=== PATIENT | female | born 1945 | race Two or more races ===

== ENCOUNTER 2016-11-24 12:27 | Observation (INO) | payer MEDICARE, OTHER ==
--- NOTE | ~2016-11-24 | EKG ---
PATIENT: MICHELLE COMBS UNIT #: [id number] Ventricular Rate: 67 BPM Atrial Rate: 67 BPM P-R Interval: 174 ms QRS Duration: 84 ms Q-T Interval: 408 ms QTC Calculation(Bezet): 431 ms P Regent: 70 degrees Calculated R Regent: 71 degrees Calculated T Regent: 63 degrees Diagnosis Line: Normal sinus rhythm Diagnosis Line: Poor R wave progression questionable lead position Diagnosis Line: or body habitus Diagnosis Line: Otherwise normal ECG Diagnosis Line: When compared with ECG of 02-NOV-2015 10:58, Diagnosis Line: No significant change was found Diagnosis Line: Confirmed by MARIELA SANTOS MD ([id number]) on 11/24/2016 Diagnosis Line: 9:23:21 PM INTERPRETING MD: DANIELLE HERNANDEZ
--- NOTE | ~2016-11-24 | DS ---
Unit #: [id number] #: [id number] Patient: MICHELLE COMBS [id number] [address] [place], [place] [address] [id number] MR#: [id number] NAME: MICHELLE COMBS ROOM: 316 Age: 70 Sex: F Admission Date: 11/24/2016 : 1945 Discharge Date: 11/25/2016 Attending Physician: Lynda Aleman M.D. Primary Care Physician: Paolo Toth M.D. DISCHARGE SUMMARY PRIMARY CARE PHYSICIAN Dr. Toth. PRINCIPAL DIAGNOSES 1. Left-sided benign paroxysmal positional vertigo. 2. Urinary tract infection with gram-negative rods, pending urine culture. 3. Anxiety. 4. Hyperlipidemia. 5. Chronic thrombocytopenia. 6. Seasonal allergies. CONSULTANTS None. PROCEDURES None. CLINICAL HISTORY AND HOSPITAL COURSE Ms. Combs is a nice 70-year-old female, Bosnian speaking only, who presents to emergency department with dizziness and weakness. Please refer to H and P for further details. The patient clinically appeared to have benign paroxysmal positional vertigo and was admitted for observation. The patient underwent [place]-Hallpike maneuver today in the room and is still having some dizziness, unfortunately with a lot of associated anxiety. She has had this vertigo intermittently for 20 years and generally has not moved her head to the left nor has she slept on the left for 20 years and this has all been discussed with the patient and her children about the need for outpatient therapy. Meclizine on a p.r.n. basis to help dizziness. The patient was also found to have urinary tract infection, but she is afebrile and has no leukocytosis. She has received 2 doses of Rocephin during hospitalization. Will complete course with Levaquin tomorrow and will follow up urine culture as an outpatient. DISCHARGE CONDITION Stable. DISCHARGE STATUS Discharged to home with plans for outpatient vestibular therapy. DISCHARGE MEDICATIONS Unit #: [id number] #: [id number] Patient: MICHELLE COMBS Zyrtec 10 mg daily, Levaquin 500 mg p.o. x1, and meclizine 25 mg p.o. t.i.d. p.r.n. for dizziness. DISCHARGE INSTRUCTIONS The patient was instructed to follow a heart healthy diet. She can increase her activity as tolerated. She is not to move her head beyond midline at least for the next hour or 2 and then begin moving it to left and right. FOLLOWUP The patient will follow up Dr. Toth in 1 week. Time spent on discharge 45 minutes. Dictated by... Lynda Aleman M.D. GABRIELA/demetria TD: 11/26/2016 03:45 JOB #: [id number] DISCHARGE SUMMARY Page 1 of 1 X Lynda Aleman MD X DISCHARGE SUMMARY
--- NOTE | ~2016-11-24 | HP ---
Unit #: [id number] #: [id number] Patient: MICHELLE COMBS 162133 [facility] [address]. [place], [place] [address] [id number] MR#: [id number] NAME: MICHELLE COMBS ROOM: Age: 70 Sex: F Admission Date: 11/24/2016 : 1945 Attending Physician: Kapil Zuniga M.D. Primary Care Physician: Paolo Toth M.D. HISTORY AND PHYSICAL CHIEF COMPLAINT Dizziness. HISTORY OF PRESENT ILLNESS The patient is a 70-year-old female with past medical history of vertigo and hyperlipidemia who presented to the emergency department for evaluation of the above. The patient speaks Bosnian only but prefers that her son and daughter translate. She refused spanish medical interpreter phone. The patient was apparently in her usual state of health until the morning of admission when she awoke with a spinning sensation. She had associated nausea. She felt generally weak, similar to when she has had vertigo in the past. The sensation was exacerbated position changes and moving of the head. She presented to the emergency department for further evaluation. In the emergency department, pulse and blood pressure were 74 and 133/73 respectively. She was given Reglan, Solu-Medrol, and Antivert as well as one liter of normal saline. She became quite anxious after administration of Reglan. She was subsequently a milligram of Ativan. She is currently rather lethargic following Ativan; however, she does awake to physical stimuli. Laboratory is notable for findings concerning for urinary tract infection. She is being admitted to [facility] for evaluation and further treatment. PAST MEDICAL HISTORY 1. Hyperlipidemia. 2. Vertigo. PAST SURGICAL HISTORY Cholecystectomy. SOCIAL HISTORY The patient lives with her . There is no tobacco or alcohol use. She typically walks without assistance. FAMILY HISTORY Notable for her mother dying at the age of 93. Her dad had heart problems. ALLERGIES The patient does have a medication allergy. She was apparently seen in the emergency department, November 02, 2015, for an allergic reaction. The family is not sure what medication this was due to. Unit #: [id number] #: [id number] Patient: MICHELLE COMBS HOME MEDICATIONS None. REVIEW OF SYSTEMS A complete review of systems is negative except as indicated in the HPI. PHYSICAL EXAMINATION GENERAL APPEARANCE: The patient is a female who is lethargic but awakes to physical stimuli. VITAL SIGNS: Temperature 97.7. Pulse 74. Respirations 16. Blood pressure 133/73. Oxygen saturation is 96% on room air. HEENT: The head is atraumatic. Mucous membranes are moist. NECK: Supple. Trachea is midline. CARDIOVASCULAR: Regular rate and rhythm. LUNGS: Clear to auscultation bilaterally with no increased work of breathing. ABDOMEN: Soft, nontender with bowel sounds present in all four quadrants. EXTREMITIES: Nontender with no pedal edema. NEUROLOGIC: The patient is currently rather lethargic. She was alert and oriented, following commands prior to Ativan. PSYCHIATRIC: The patient was previously somewhat anxious following administration of Reglan. SKIN: Of examined areas is warm and dry. DIAGNOSTIC STUDIES LABORATORY: Complete blood count notable for platelets of 126. Troponin is less than 0.05. Comprehensive metabolic panel notable for glucose of 123. Urinalysis notable for trace leukocyte esterase, positive nitrite, 4+ bacteria. CARDIOVASCULAR: EKG shows normal sinus rhythm with a rate of 67 beats per minute. ASSESSMENT The patient is a 70-year-old female with: 1. Generalized weakness. 2. Vertigo. 3. Urinary tract infection. There are no urine cultures in [facility] for review. 4. Hyperlipidemia. 5. Thrombocytopenia. The patient's platelet count has been as low as 108 on August 26, 2013. It is 126 today. PLAN 1. Admit to intermediate level for observation. 2. Normal saline at 75 mL/hour. 3. Healthy Heart diet when awake and passes bedside swallow. 4. Fall precautions. 5. PT/OT to evaluate and treat. 6. PRN meclizine. 7. Neuro checks. 8. Blood cultures x2. 9. Urine culture and sensitivity on urine in the lab. 10. PRN Tylenol. 11. PRN Zofran. 12. Rocephin pending results of urine culture. 13. Get copy of ER T sheet from November 02, 2015, for confirmation of medication allergy. Unit #: [id number] #: [id number] Patient: MICHELLE COMBS 14. Repeat labs in the morning. 15. SCDs for DVT prophylaxis. 16. Serial cardiac enzymes. 17. Additional workup and consultants based on above. Dictated by Luis Barnett TD: 11/24/2016 14:16 JOB #: [id number] HISTORY AND PHYSICAL Page 1 of 1 X Greta Aldrich MD HISTORY AND PHYSICAL
[2016-11-24 11:06] LABS: BASOPHIL% 0.7 % (0-2.5); DIFF IND NO; EOSINOPHIL# 0.1 X10e3 (0-0.7); EOSINOPHIL% 1.7 % (0.0-7.0); HEMATOCRIT 40.6 % (35.0-45.0); HEMOGLOBIN 13.7 gm/dL (12.0-16.0); LYMPHOCYTE# 0.9 X10e3 (1.0-3.5); LYMPHOCYTE% 19.6 % (17.0-45.0); MEAN CELL VOLUME 88.5 FL (83-96); MEAN CORPUSCULAR HEMOGLOBIN 29.8 PG (28-34); MEAN CORPUSCULAR HGB CONC 33.7 g/dL (30-36); MEAN PLATELET VOLUME 9.7 FL (6.5-11.5); MONOCYTE# 0.5 X10e3 (0-1.0); MONOCYTE% 9.8 % (3.0-12.0); NEUTROPHIL# 3.3 X10e3 (1.5-7.1); NEUTROPHIL% 68.2 % (40-75); PLATELET COUNT 126 X10e3 (140-420); RED BLOOD COUNT 4.59 X10e (3.90-5.30); RED CELL DISTRIBUTION WIDTH 12.5 % (11.0-15.5); WHITE BLOOD COUNT 4.8 X10e3 (4.0-10.5)
[2016-11-24 11:11] LABS: POC - CKMB <1.0 ng/mL (0.0-7.9); POC - TROPONIN <0.05 ng/mL (<=0.05)
[2016-11-24 11:30] LABS: ALBUMIN SERUM 3.9 g/dL (3.5-5.0); BILIRUBIN, DIRECT 0.2 mg/dL (0.0-0.2); BILIRUBIN,INDIRECT 0.5 mg/dL (0.0-0.9); BILIRUBIN,TOTAL 0.7 mg/dL (0.2-2.0); CALCIUM SERUM 8.7 mg/dL (8.4-10.2); CREATININE SERUM 0.8 mg/dL (0.6-1.4); GLOM FILT RATE Estimated 74.8 mL/min (>60); POTASSIUM 3.8 mmol/L (3.5-5.1); PROTEIN TOTAL SERUM 6.8 g/dL (6.0-8.3)
[2016-11-24 11:37] LABS: URINE SOURCE CLEAN CATCH
[2016-11-24 11:45] LABS: URINE APPEARANCE CLEAR; URINE BILIRUBIN NEG (NEG); URINE BLOOD NEG (NEG); URINE COLOR YELLOW; URINE GLUCOSE NEG (NEG); URINE KETONE NEG (NEG); URINE LEUKOCYTE ESTERASE TRACE (NEG); URINE NITRATE POS (NEG); URINE PROTEIN NEG (NEG); URINE SPECIFIC GRAVITY 1.015 (1.003-1.035); URINE UROBILINOGEN 0.2 MG/DL (NEG)
[2016-11-24 11:48] LABS: CULTURE INDICATED? YES; URBCS1 AUWI 0-2 /[HPF] (0-2); URINE BACTERIA AUWI 4+ (NEGATIVE); URINE SQUAMOUS EPITHELIAL CELL OCC /[HPF]
[~2016-11-24 12:27] MED LIST: FLEXERIL10 MG PO; LORTAB 10-5001 EACH PO
[2016-11-24] MEDS ORDERED: NO MEDICATIONS (13:09)
[2016-11-24 17:40] LABS: CK TOTAL 45 IU/L (26-140)
[2016-11-24] MEDS ORDERED: ZYRTEC10 M1 PO (22:26)
[2016-11-24 23:27] LABS: CK TOTAL 38 IU/L (26-140)
[2016-11-25 14:15] LABS: BASOPHIL% 0.5 % (0-2.5); EOSINOPHIL% 0.4 % (0.0-7.0); HEMOGLOBIN 12.4 gm/dL (12.0-16.0); LYMPHOCYTE# 1.7 X10e3 (1.0-3.5); LYMPHOCYTE% 22.4 % (17.0-45.0); MEAN CELL VOLUME 89.4 FL (83-96); MEAN CORPUSCULAR HEMOGLOBIN 30.1 PG (28-34); MEAN CORPUSCULAR HGB CONC 33.6 g/dL (30-36); MEAN PLATELET VOLUME 9.4 FL (6.5-11.5); MONOCYTE# 0.5 X10e3 (0-1.0); MONOCYTE% 6.4 % (3.0-12.0); NEUTROPHIL# 5.4 X10e3 (1.5-7.1); NEUTROPHIL% 70.3 % (40-75); PLATELET COUNT 118 X10e3 (140-420); RED BLOOD COUNT 4.14 X10e (3.90-5.30); RED CELL DISTRIBUTION WIDTH 12.4 % (11.0-15.5)
[2016-11-25 14:17] LABS: DIFF IND NO; WHITE BLOOD COUNT 7.7 X10e3 (4.0-10.5)
[2016-11-25 14:42] LABS: BUN/CREATININE RATIO 21.25; CALCIUM SERUM 8.4 mg/dL (8.4-10.2); CREATININE SERUM 0.8 mg/dL (0.6-1.4); GLOM FILT RATE Estimated 74.8 mL/min (>60); POTASSIUM 4.2 mmol/L (3.5-5.1)
[2016-11-25] MEDS ORDERED: ANTIVERT PO (15:45)
[2016-11-25] MEDS ORDERED: LEVAQUIN PO (15:45)
== END 2016-11-25 16:32 | disposition home or self-care (01) ==
LOC: CED 12:27 → CEDOF 13:30 → C3A PCU 20:23
PROVIDERS: Emergency Medicine; Family Medicine
DX: H81.12 Benign paroxysmal vertigo, left ear (principal); N39.0 Urinary tract infection, site not specified; F41.9 Anxiety disorder, unspecified; E78.5 Hyperlipidemia, unspecified; D69.6 Thrombocytopenia, unspecified; J30.2 Other seasonal allergic rhinitis; Z79.2 Long term (current) use of antibiotics; Z90.49 Acquired absence of other specified parts of digestive tract
CPT/HCPCS: 36415; 80048; 80076; 81003; 82550; 82553; 84484; 85025; 87040; 87086; 87088; 87186; 90732; 93005; 96361; 96365; 96374; 96375; 97110; 97161; 97165; 99285; G0009; G0378; G8978-GP; G8979-GP; G8987-GO; G8988-GO; G8989-GO; J0696; J2060; J2765; J2930